=== PATIENT | male | born 1975 | race Caucasian/White ===

== ENCOUNTER 2020-12-17 09:27 | Day surgery (SDC) | payer BC, OTHER ==
[2020-12-17 10:57] LABS: MPV 9.5 fL (7.6-11.3)
[2020-12-17 10:59] LABS: Protime INR 0.94
[2020-12-17 11:37] VITALS: BMI 38.9
--- NOTE | 2020-12-17 13:14 | RAD REPORT ---
EXAM DESCRIPTION: RAD - Lumbar Puncture For Dx - 12/17/2020 1:01 pm CLINICAL HISTORY: Headaches COMPARISON: None. TECHNIQUE: The procedure, risks and alternatives to the procedure were discussed with the patient in detail. After answering all questions, both oral and written consent were obtained. Time-out procedu re was performed. The patient was placed in an oblique prone position on the fluoroscopic table. The skin of the lower back was prepped and draped in the usual sterile fashion. After anesthetizing the skin and deeper sof t tissues with 1% lidocaine, a 22 gauge needle was advanced into the thecal sac at the L2-3 level. At the conclusion of the procedure the needle was withdrawn and a sterile bandage placed over the pun cture site. The patient tolerated the procedure well without immediate complications. Post-procedure care and precaution instructions were discussed with the patient before the LP procedure. IMPRESSION: Successful fluoroscopic guided lumbar puncture. All obtained fluid was sent to the lab f or studies requested by the referring physician.
[2020-12-17] MEDS ORDERED: HYDROCODONE/APAP 7.5/325 MG TAB ONE (13:40)
[2020-12-17 14:11] VITALS: TEMP 97.9
[2020-12-17 14:13] VITALS: O2SAT 98
[2020-12-17 14:29] LABS: Body Fluid Source CSF; Color of fluid Colorless (COLORLESS); Fluid Total Volume 5.4 ml
[2020-12-17 14:30] LABS: Appearance CLEAR (CLEAR)
[2020-12-17 14:41] LABS: CSF Glucose 59 mg/dL (40-70)
[2020-12-17 15:20] LABS: Body Fluid WBC 4 /mm^3
[2020-12-17 15:23] LABS: Appearance CLEAR (CLEAR); Body Fluid Source CSF; Body Fluid WBC 4 /mm^3; Color of fluid Colorless (COLORLESS)
[2020-12-17 16:51] VITALS: BP 129/82
== END 2020-12-17 15:20 | disposition home or self-care (01) ==
LOC: DS 09:27 → EDSTATUS 11:00 → DS 15:20
PROVIDERS: ATTEND Specialist
PROC: 009U3ZX Drainage of Spinal Canal, Percutaneous Approach, Diagnostic (ICD-10-PCS; principal; 2020-12-17)
DX: G44.021 Chronic cluster headache, intractable (principal); R93.89 Abnormal findings on diagnostic imaging of other specified body structures
CPT/HCPCS: 36415; 77003; 82945; 84157; 85049; 85610; 85730; 87070; 88108; 89050